=== PATIENT | female | born 1940 | race Hispanic/Latino ===

== ENCOUNTER 2021-04-28 08:25 | Emergency (ER) | payer MEDICARE, SELFPAY ==
--- NOTE | ~2021-04-28 | XR_ITS ---
EXAMINATION: XR ribs LT 2V w CXR 2V DATE: 04/28/2021 09:18 INDICATION: Left rib pain. Fall. TECHNIQUE: Frontal and lateral views of the chest and 2 views on 3 radiographs of the left ribs were obtained. COMPARISON: None. FINDINGS: CHEST TWO VIEWS: The chest demonstrates clear lungs without pneumonia, pleural effusion, or pneumotho rax. The heart size is normal. There is mild anterior wedging of 2 midthoracic vertebral bodies, like ly chronic. LEFT RIBS: There is no rib fracture. IMPRESSION: 1. No rib fracture. Reviewed, dictated and finalized at location A. ARCHITECT IMPRESSION: 1. No rib fracture.
--- NOTE | ~2021-04-28 | XR_ITS ---
EXAMINATION: XR hand RT min 3V DATE: 04/28/2021 09:18 INDICATION: Right hand injury. TECHNIQUE: 3 views of right hand were obtained. COMPARISON: Right wrist radiographs 01/09/2015 FINDINGS: Clinodactyly is noted. Osteopenia is noted. There is a nondisplaced extra-articular stellat e fracture of fourth middle phalanx. There is severe osteoarthritis of second distal interphalangeal joint and mild osteoarthritis of some of the other interphalangeal joints and fourth metacarpophalang eal joint. IMPRESSION: 1. Stellate fracture of fourth middle phalanx. 2. Polyarticular osteoarthritis. Reviewed, dictated and finalized at location A. AL SERVICES ASSISTANT
[2021-04-28 08:43] VITALS: BP 201/97; PULSE 80; RESP 18; TEMP 37.2; O2SAT 100
--- NOTE | 2021-04-28 08:57 | ED.GENADULT ---
HPI - General Adult General Chief complaint: Fall Stated complaint: Lower Back Pain Time Seen by Provider: 04/28/21 09:00 Source: patient, RN notes reviewed and old records reviewed Mode of arrival: ambulatory Limitations: no limitations History of Present Illness HPI narrative: 80 year old female presents to [facility] care with complaints of falling at home 5 days ago coming down the 4 attic steps. She denies any prior dizziness before fall just in sock feet and slipped. Patient reports that she hit the back of her head and left posterior rib area on steps and also injured her right right finger. She denies any loss of consciousness at ronan of fall or any use of blood thinners.Patient states that the distal aspect of her right ring finger was displaced and she pulled on finger and straightened her finger with noticeable bruising of finger and dorsal hand near finger. Patient also has area of bruising to the posterior left upper chest area with pain stated with coughing or sneezing, denies any dyspnea lung sounds in [facility] [place]. Blood pressure recheck manually with recording BP 180/88. MD complaint: fall 5 days ago Onset (ago): day(s) (5) Location: back (left upper back) and right (hand ring finger) Treatments prior to arrival: other (Tylenol) Related Data Home Medications Medication Instructions Recorded Confirmed atorvastatin 10 mg PO DAILY 04/28/21 04/28/21 ergocalciferol (vitamin D2) 1,250 mcg PO WEEKLY 04/28/21 04/28/21 glipizide 10 mg PO BID 04/28/21 04/28/21 metformin 1,000 mg PO BID 04/28/21 04/28/21 metoprolol succinate 50 mg PO BID 04/28/21 04/28/21 Allergies Allergy/AdvReac Type Severity Reaction Status Date / Time No Known Allergies Allergy Verified 04/28/21 09:15 Review of Systems Review of Systems: CONSTITUTIONAL: Denies fever, chills, or sweats. EYES: Denies visual changes, redness, or discharge. ENT: Denies rhinorrhea, congestion, sore throat, or otalgia. CARDIOVASCULAR: Denies chest pain, palpitations, or edema. RESPIRATORY: Denies cough or dyspnea. GASTROINTESTINAL: Denies abdominal pain, nausea, vomiting, or diarrhea. GENITOURINARY: Denies dysuria or hematuria. SKIN: Denies rash or itching. MUSCULOSKELETAL: Upper left back pain with bruising,right 4th finger pain, or myalgia. NEUROLOGIC: Denies headache, numbness, or weakness. PSYCHIATRIC: Denies anxiety or depression. All systems reviewed & are unremarkable except as noted in HPI and below PMFSH Past Medical History Medical History (Updated 04/29/21 @ 00:01 by Piper Burkett) Diabetes Hypercholesterolemia Hypertension Surgical History Surgical History (Updated 04/28/21 @ 09:00 by Anum Hercules NP) H/O: hysterectomy Family History Family History (Updated 04/29/21 @ 08:20 by Anum Hercules NP) Other Family history non-contributory Social History Social History (Updated 04/28/21 @ 09:05 by Anum Hercules NP) Smoking status: Never smoker Alcohol intake: never Substance use: never Living arrangements: with family Gender identity (if verbalized by the patient): Female Comments At time of signature, agree with nursing past medical, surgical, social and family history. There is no relevant family history pertinent to the presenting complaint Exam Narrative: GENERAL: Well-appearing, well-nourished, and in no acute distress. HEAD: Normocephalic, atraumatic,no bruising or pain stated EYES: PERRLA and EOMI.no nystagmus ENT: Nares clear, no rhinorrhea or epistaxis. Mucous membranes moist.TM's normal with good light reflex, throat pink with no lesions or exudates NECK: Supple. no lymphadenopathy CHEST: Clear to auscultation. No respiratory distress. SAO2 100% on room air, some pain to left mid to upper back along posterior ribs with some bruising noted, increase pain with movement. HEART: Regular rate and rhythm. No murmur heard. Normal peripheral pulses. ABDOMEN: Soft, nontender, nondistended, normal active bowel s
== END 2021-04-28 10:05 | disposition home or self-care (01) ==
PROVIDERS: Emergency Provider Registered Nurse
DX: S20.222A Contusion of left back wall of thorax, initial encounter (principal); S62.624A Displaced fracture of middle phalanx of right ring finger, initial encounter for closed fracture; W10.9XXA Fall (on) (from) unspecified stairs and steps, initial encounter; E11.9 Type 2 diabetes mellitus without complications; E78.00 Pure hypercholesterolemia, unspecified; I10 Essential (primary) hypertension
CPT/HCPCS: 29130; 71046; 71100; 73130; 99214; G0463

== ENCOUNTER 2022-08-03 09:34 | Emergency (ER) | payer MEDICARE, SELFPAY ==
[2022-08-03 09:49] VITALS: BP 125/57; PULSE 82; RESP 16; TEMP 37.2; O2SAT 99
--- NOTE | 2022-08-03 09:51 | ED.SKABFB ---
HPI - Skin/Abscess/Foreign Bdy General Chief complaint: Extremity Problem,Nontraumatic Stated complaint: Left Leg/Butt Pain Time Seen by Provider: 08/03/22 09:50 Source: patient Mode of arrival: ambulatory Limitations: no limitations History of Present Illness HPI narrative: Merle is a 81-year-old female patient presenting to clinic today with complaints of possible shingles to the left glue. She reports that she started having pain over the weekend and has seen the chiropractor due to the pain however she broke out in a rash and is having more severe pain. States she was on all fours over the weekend cleaning the floors and thought she may have pinched a nerve. She has pain radiating down the left leg with the rash developing on the left buttock Related Data Home Medications Medication Instructions Recorded Confirmed atorvastatin 10 mg tablet 10 mg PO DAILY 04/28/21 08/03/22 ergocalciferol (vitamin D2) 1,250 1,250 mcg PO WEEKLY 04/28/21 08/03/22 mcg (50,000 unit) capsule glipizide 10 mg tablet, extended 10 mg PO BID 04/28/21 08/03/22 release 24 hr metformin 1,000 mg tablet 1,000 mg PO BID 04/28/21 08/03/22 metoprolol succinate 50 mg 50 mg PO BID 04/28/21 08/03/22 tablet,extended release 24 hr amlodipine 5 mg-valsartan 320 mg 1 tablet PO DAILY 08/03/22 08/03/22 tablet Allergies Allergy/AdvReac Type Severity Reaction Status Date / Time No Known Allergies Allergy Verified 08/03/22 09:38 Review of Systems Review of Systems: Pertinent positives per HPI. Patient denies any fever, chills, headache, visual changes, dizziness, cough, runny nose, sore throat, shortness of breath, chest pain, palpitations, nausea, vomiting, diarrhea, constipation, abdominal pain, or any urinary issues. [facility] Past Medical History Medical History Diabetes Hypercholesterolemia Hypertension Surgical History Surgical History (Updated 04/28/21 @ 09:00 by Anum Hercules NP) H/O: hysterectomy Family History Family History Other Family history non-contributory Social History Social History Smoking status: Never smoker Alcohol intake: never Substance use: never Living arrangements: with family Gender identity (if verbalized by the patient): Female Comments At the time of my signature, I reviewed and agree with the nursing past medical, surgical, social, and family history. There is no relevant family history pertinent to the patient complaint. Exam Narrative: General: Well-developed, well nourished, in no apparent distress Head: Normocephalic, atraumatic. Cardio: Regular rate and rhythm, s1 and s2 normal, no murmur appreciated. Resp: Clear to auscultation bilaterally, no rhonchi, rales, wheezing or rubs. Integumentary: Lerna, warm, and dry, intact without lesion, red raised vesicular blisters with erythemic base that are tender to palpation over the left glut Course Course Emergency Course: Portions of this record may have been created with voice recognition software. Level of Care: Express Care Visit Vital Signs Vital signs: Vital Signs Temperature 37.2 C 08/03/22 09:49 Pulse Rate 82 08/03/22 09:49 Respiratory Rate 16 08/03/22 09:49 Blood Pressure 125/57 L 08/03/22 09:49 Pulse Oximetry 99 08/03/22 09:49 Oxygen Delivery Room Air 08/03/22 09:49 Temperature 37.2 C 08/03/22 09:49 Pulse Rate 82 08/03/22 09:49 Respiratory Rate 16 08/03/22 09:49 Blood Pressure 125/57 L 08/03/22 09:49 Pulse Oximetry 99 08/03/22 09:49 Oxygen Delivery Room Air 08/03/22 09:49 Vital signs reviewed MDM - Skin/Abscess/Foreign Bdy MDM Narrative Medical decision making narrative: At the time of visit patient is resting comfortably on the exam table. I suspect patient has herpes zoster. Presc
== END 2022-08-03 10:05 | disposition home or self-care (01) ==
PROVIDERS: Emergency Provider Nurse Practitioner Family
DX: B02.9 Zoster without complications (principal); E11.9 Type 2 diabetes mellitus without complications; I10 Essential (primary) hypertension; Z79.84 Long term (current) use of oral hypoglycemic drugs
CPT/HCPCS: 99213; G0463

== ENCOUNTER → 2022-09-04 13:32 | Outpatient (CLI) | payer MEDICARE, BC, SELFPAY ==
--- NOTE | ~2022-09-04 | MR_ITS ---
MRI of the left ankle Clinical history: Pain Technique: Coronal proton-density and proton-density fat-sat images, axial proton-density and proton- density fat-sat images, and sagittal proton-density and proton-density fat-sat images were acquired. Findings: Syndesmotic ligaments are intact. Anterior and posterior talofibular ligaments, and calcane ofibular ligament are intact. Deltoid ligament is intact. Spring ligament is intact. Medial flexor tendons, peroneal tendons, anterior extensor tendons, and Achilles tendon are intact. There is marrow edema at the central aspect of the talar dome, with probable developing overlying cho ndromalacia. Remaining bone marrow signals are unremarkable. There is mild degenerative change of the talonavicular articulation. No significant joint effusion identified. Plantar fascia intact. Normal signal preserved in the sinus Tarsi. There is mild subcutaneous soft ti ssue edema diffusely about the ankle. Impression: Marrow edema at the central aspect of the talar dome. Findings could reflect early developing osteoch ondral lesion versus other reactive or possibly posttraumatic marrow edema. No ligamentous or tendinous abnormality evident. Mild diffuse subcutaneous soft tissue edema about the ankle, nonspecific. Reviewed, dictated and finalized at [facility]. Impression: Marrow edema at the central aspect of the talar dome. Findings could reflect ea rly developing osteochondral lesion versus other reactive or possibly posttraum atic marrow edema. No ligamentous or tendinous abnormality evident. Mild diffuse subcutaneous soft tissue edema about the ankle, nonspecific.
== END ==
PROVIDERS: PCP Internal Medicine Endocrinology, Diabetes & Metabolism
DX: M25.572 Pain in left ankle and joints of left foot (principal); G89.29 Other chronic pain; M25.472 Effusion, left ankle; R20.0 Anesthesia of skin; R20.2 Paresthesia of skin; M79.89 Other specified soft tissue disorders
CPT/HCPCS: 73721

== ENCOUNTER 2023-02-25 15:42 | Emergency (ER) | payer MEDICARE, SELFPAY ==
--- NOTE | ~2023-02-25 | XR_ITS ---
XR humerus RT 02/25/2023 16:19 Indication: Right arm pain after fall Procedure: 2 views right humerus Comparison: No prior studies for comparison. Findings: No fracture, subluxation or dislocation. Osteopenia. No soft tissue abnormality. No foreign bodies. Impression: 1: No acute bone or joint abnormality. Reviewed, dictated and finalized at location L. Impression: 1: No acute bone or joint abnormality.
--- NOTE | 2023-02-25 15:51 | ED.UPPEXIN ---
HPI - Extremity Injury (Upper) General Chief Complaint: Extremity Injury, Upper Stated Complaint: right arm pain Time Seen by Provider: 02/25/23 15:52 Source: patient Mode of arrival: ambulatory Limitations: no limitations History of Present Illness HPI narrative: patient is an 82-year-old female that presents with right shoulder pain after tripping and falling on to shoulder. Patient denies hitting head and did not feel any pops or cracks and shoulder. Patient deniesAny numbness or tingling. States it is painful to move but has been icing it and elevating it. Related Data Home Medications Medication Instructions Recorded Confirmed atorvastatin 10 mg tablet 10 mg PO DAILY 04/28/21 02/25/23 ergocalciferol (vitamin D2) 1,250 1,250 mcg PO WEEKLY 04/28/21 02/25/23 mcg (50,000 unit) capsule glipizide 10 mg tablet, extended 10 mg PO BID 04/28/21 02/25/23 release 24 hr metoprolol succinate 50 mg 50 mg PO BID 04/28/21 02/25/23 tablet,extended release 24 hr amlodipine 5 mg-valsartan 320 mg 1 tablet PO DAILY 08/03/22 02/25/23 tablet empagliflozin 25 mg tablet 25 mg DIRECTED 02/25/23 02/25/23 (Jardiance) gabapentin 100 mg capsule 100 mg DIRECTED 02/25/23 02/25/23 linagliptin 5 mg tablet (Tradjenta) 5 mg DIRECTED 02/25/23 02/25/23 sodium bicarbonate 650 mg tablet 650 mg DIRECTED 02/25/23 02/25/23 Allergies Allergy/AdvReac Type Severity Reaction Status Date / Time No Known Allergies Allergy Verified 08/03/22 09:38 Review of Systems Review of Systems: All systems reviewed & are unremarkable except as noted in HPI and below Constitutional: Constitutional: Denies body ache(s), Denies chills, Denies fatigue, Denies fever(s), Denies headache(s), Denies malaise and Denies weakness Eyes: Eyes: Denies blurry vision, Denies irritation and Denies loss of vision ENT: Denies otalgia, Denies headache(s), Denies nasal discharge, Denies sinus pain and Denies sore throat Cardiovascular: Cardiovascular: Denies chest pain, Denies irregular heart rhythm and Denies dyspnea Respiratory: Respiratory: Denies dyspnea Gastrointestinal: Gastrointestinal: Denies abdominal pain, Denies melena, Denies hematochezia, Denies diarrhea, Denies nausea and Denies vomiting Musculoskeletal: Musculoskeletal: Denies back pain, Denies myalgias and Reports arthralgias Integumentary/Breasts: Skin/Breast: Denies pruritus and Denies rash Neurologic: Denies headache(s), Denies loss of vision and Denies weakness Psychiatric: Psychiatric: Reports no additional psychiatric complaints Endocrine: Endocrine: Denies fatigue PMFSH Past Medical History Medical History Diabetes Hypercholesterolemia Hypertension Surgical History Surgical History H/O: hysterectomy Family History Family History Other Family history non-contributory Social History Social History Smoking status: Never smoker Alcohol intake: never Substance use: never Living arrangements: with family Gender identity (if verbalized by the patient): Female Comments At time of signature, agree with nursing past medical, surgical, social and family history. There is no relevant family history pertinent to the presenting complaint. Exam Const: General: cooperative, healthy appearing, comfortable, no acute distress and well nourished Nutritional Appearance: well nourished Orientation/consciousness: patient oriented x3 Limitations: no limitations HENMT: Head: normal to inspection, normocephalic and atraumatic Ears: hearing grossly normal bilaterally and external ears normal Face/Nose/Sinus: Normal external nose present, normal facial exam and face symmetric Face and sinus: normal facial exam and face symmetric Mouth: Yes lip normal Eyes:
[2023-02-25 15:56] VITALS: BP 146/59; PULSE 68; RESP 16; TEMP 36.9; O2SAT 100
[2023-02-25 15:59] VITALS: BP 146/59; PULSE 68; RESP 16; TEMP 36.9; O2SAT 100
== END 2023-02-25 17:07 | disposition home or self-care (01) ==
PROVIDERS: Emergency Provider Nurse Practitioner Family
DX: M25.511 Pain in right shoulder (principal); W01.0XXA Fall on same level from slipping, tripping and stumbling without subsequent striking against object, initial encounter; E11.9 Type 2 diabetes mellitus without complications; E78.00 Pure hypercholesterolemia, unspecified; I10 Essential (primary) hypertension
CPT/HCPCS: 73060; 99213; A4565; G0463